=== PATIENT | female | born 1965 | race Caucasian/White ===

== ENCOUNTER 2025-01-06 16:10 | Emergency (ER) | payer BC, SELFPAY | END 2025-01-06 16:25 | disposition short-term general hospital (02) | PROVIDERS: Emergency Provider Nurse Practitioner Family | DX: H53.9 Unspecified visual disturbance (principal); F41.9 Anxiety disorder, unspecified; F32.A Depression, unspecified | CPT/HCPCS: 99212; G0463 ==